=== PATIENT | female | born 1995 | race Caucasian/White ===

== ENCOUNTER 2017-10-23 19:13 | Emergency (ER) | payer OTHER ==
[~2017-10-23] VITALS: Ht 157.5 cm; Wt 59.0 kg
[~2017-10-23 19:13] MED LIST: ACYC200 PO; ALBU90OI INH; ALBU90OI6 INH; AMOX500 PO; AZIT250 PO; Advair Hfa 230-12 GM INH; Advair Hfa 45-212 GM INH; Amoxicillin500 MG PO; BUSP5 PO; CEPH250SUA PO; CEPH500 PO; CODACEE120 PO; CODBUTACEC PO; CYCL10 PO; Diflucan100 MG PO; FLUSAL2505 INH; Flagyl500 MG PO; GABA300 PO; HYDACE5 PO; IBUP800 PO; LIDO5TO TOP; MARIJUANA; METF500; METR500 PO; MULVITMINE PO; Macrobid 100 M100 MG PO; Mucinex600 MG PO; NAPR550 PO; Norco 5-325 Ta1 EACH PO; ONDA4ODT MM; PENI125S5 PO; PENVK500 PO; PRENATAL PO; Percocet 5-3251 EACH PO; Prednisone20 MG PO; Prednisone50 MG PO; SULTRIDS PO; TOPIRAGEN50 MG PO; Ventolin/Prove6.7 GM INH; Verotin-Gr Cap1 EACH PO; Vibramycin100 MG PO; Zithromax250 MG PO; Zofran Odt4 MG SL; Zovirax400 MG PO; Zovirax800 MG PO
[2017-10-23] MEDS ORDERED: Advair Hfa 230-12 GM INH (21:18)
[2017-10-23] MEDS ORDERED: ALBU2.5V5 NEB (22:25)
[2017-10-23] MEDS ORDERED: Zithromax250 MG PO (22:25)
[2018-02-16] MEDS ORDERED: METH5 (16:33)
[2018-02-16] MEDS ORDERED: METH10 (16:34)
[2018-07-20] MEDS ORDERED: DULERA 100 MCG/13 GM INH (15:55)
[2018-07-20] MEDS ORDERED: Pyridium200 MG PO (16:25)
[2018-07-20] MEDS ORDERED: CEPH500 PO (16:26)
[2018-08-07] MEDS ORDERED: PENVK500 PO (23:46)
[2018-08-07] MEDS ORDERED: IBUP600 PO (23:46)
== END 2017-10-23 22:40 | disposition home or self-care (01) ==
LOC: ER 19:13
DX: J44.1 Chronic obstructive pulmonary disease with (acute) exacerbation (principal); J96.90 Respiratory failure, unspecified, unspecified whether with hypoxia or hypercapnia; Z88.8 Allergy status to other drugs, medicaments and biological substances; Z79.899 Other long term (current) drug therapy; Z91.018 Allergy to other foods; F17.210 Nicotine dependence, cigarettes, uncomplicated; G43.909 Migraine, unspecified, not intractable, without status migrainosus
CPT/HCPCS: 71046; 94644; 99283; J1100

== ENCOUNTER 2017-10-30 11:08 | Emergency (ER) | payer OTHER ==
[~2017-10-30] VITALS: Ht 160 cm; Wt 61.2 kg
[~2017-10-30 11:08] MED LIST changes: +ALBU2.5V5 NEB
[2017-10-30] MEDS ORDERED: BUDE6HFA INH (11:49)
[2017-10-30] MEDS ORDERED: Prednisone20 MG PO (11:50)
[2017-10-30] MEDS ORDERED: ALBU90OI INH (11:50)
[2018-02-16] MEDS ORDERED: METH5 (16:33)
[2018-02-16] MEDS ORDERED: METH10 (16:34)
[2018-07-20] MEDS ORDERED: DULERA 100 MCG/13 GM INH (15:55)
[2018-07-20] MEDS ORDERED: Pyridium200 MG PO (16:25)
[2018-07-20] MEDS ORDERED: CEPH500 PO (16:26)
[2018-08-07] MEDS ORDERED: IBUP600 PO (23:46)
[2018-08-07] MEDS ORDERED: PENVK500 PO (23:46)
== END 2017-10-30 12:36 | disposition home or self-care (01) ==
LOC: ER 11:08
DX: J45.901 Unspecified asthma with (acute) exacerbation (principal); Z91.19 Patient's noncompliance with other medical treatment and regimen; F11.90 Opioid use, unspecified, uncomplicated; Z88.8 Allergy status to other drugs, medicaments and biological substances; Z91.018 Allergy to other foods; Z79.899 Other long term (current) drug therapy; G43.909 Migraine, unspecified, not intractable, without status migrainosus; J44.9 Chronic obstructive pulmonary disease, unspecified; F17.210 Nicotine dependence, cigarettes, uncomplicated
CPT/HCPCS: 94644; 99283

== ENCOUNTER 2017-12-16 10:48 | Emergency (ER) | payer OTHER ==
[~2017-12-16] VITALS: Ht 160 cm; Wt 59.0 kg
[~2017-12-16 10:48] MED LIST changes: +BUDE6HFA INH
[2017-12-16] MEDS ORDERED: Prednisone20 MG PO (12:16)
[2017-12-16] MEDS ORDERED: ALBU90OI INH (12:16)
[2017-12-16] MEDS ORDERED: BUDE6HFA INH (12:16)
== END 2017-12-16 13:05 | disposition home or self-care (01) ==
LOC: ER 10:48
DX: J44.9 Chronic obstructive pulmonary disease, unspecified (principal); J45.901 Unspecified asthma with (acute) exacerbation; R09.02 Hypoxemia; Z91.018 Allergy to other foods; Z88.8 Allergy status to other drugs, medicaments and biological substances; Z79.899 Other long term (current) drug therapy; G43.909 Migraine, unspecified, not intractable, without status migrainosus; F17.200 Nicotine dependence, unspecified, uncomplicated
CPT/HCPCS: 71046; 94640; 94644; 99283

== ENCOUNTER 2018-03-12 13:57 | Emergency (ER) | payer OTHER ==
[~2018-03-12] VITALS: Ht 157.5 cm; Wt 61.2 kg
[~2018-03-12 13:57] MED LIST changes: +METH10; +METH5
[2018-03-12] MEDS ORDERED: ALBU90OI INH (15:32)
[2018-03-12] MEDS ORDERED: Prednisone20 MG PO (15:32)
[2018-03-12] MEDS ORDERED: Vibramycin100 MG PO (15:32)
[2018-03-12] MEDS ORDERED: Augmentin 875-1 EACH PO (15:32)
== END 2018-03-12 16:06 | disposition left against medical advice (07) ==
LOC: ER 13:57
DX: J96.01 Acute respiratory failure with hypoxia (principal); J18.9 Pneumonia, unspecified organism; F17.210 Nicotine dependence, cigarettes, uncomplicated; J45.901 Unspecified asthma with (acute) exacerbation; G43.909 Migraine, unspecified, not intractable, without status migrainosus; J44.9 Chronic obstructive pulmonary disease, unspecified; Z91.018 Allergy to other foods; Z88.8 Allergy status to other drugs, medicaments and biological substances; Z79.899 Other long term (current) drug therapy
CPT/HCPCS: 71046; 94644; 99283-25; J0456; J1100; J7050

== ENCOUNTER 2018-03-13 10:04 | Observation (INO) | payer OTHER ==
[~2018-03-13] VITALS: Ht 157.5 cm; Wt 61.5 kg
[~2018-03-13 10:04] MED LIST changes: +Augmentin 875-1 EACH PO
[2018-03-13 12:21] LABS: BASOPHILS ABSOLUTE AUTO 0.01 K/mm3 (0.00-0.23); BASOPHILS PERCENT AUTO 0 % (0-2); EOSINOPHILS ABSOLUTE AUTO 0.01 K/mm3 (0.00-0.68); EOSINOPHILS PERCENT AUTO 0 % (0-6); Hematocrit 44.6 % (33.0-51.0); Hemoglobin 14.2 g/dL (11.5-16.0); IMMATURE GRAN ABSOLUTE AUTO 0.03 K/mm3 (0.00-0.10); IMMATURE GRAN PERCENT AUTO 0 % (0-1); LYMPHOCYTES ABSOLUTE AUTO 2.54 K/mm3 (0.84-5.20); LYMPHOCYTES PERCENT AUTO 21 % (21-46); MONOCYTES ABSOLUTE AUTO 0.46 K/mm3 (0.16-1.47); MONOCYTES PERCENT AUTO 4 % (4-13); Mean Corpuscular HGB 28.4 pg (26.0-34.0); Mean Corpuscular HGB Conc 31.8 g/dL (31.5-36.5); Mean Corpuscular Volume 89 fL (80-100); Mean Platelet Volume 10.3 fL (9.1-12.4); NEUTROPHILS ABSOLUTE AUTO 9.01 K/mm3 (1.96-9.15); NEUTROPHILS PERCENT AUTO 75 % (41-73); Platelet Count 247 K/mm3 (150-400); RDW Coefficient Variation 13.3 % (11.7-14.2); RDW Standard Deviation 43.3 fL (35.1-46.3); White Blood Cell Count 12.06 K/mm3 (4.00-11.30)
[2018-03-13 12:46] LABS: Alanine Aminotransfer (ALT/SGP 15 U/L (12-78); Albumin, Blood 3.6 g/dL (3.4-5.0); Albumin/Globulin Ratio 0.8 (0.8-1.8); Alk Phos 102 U/L (50-136); Anion Gap 9 mmol/L (6-16); Aspartate Aminotrans (AST/SGOT 19 U/L (12-37); Bilirubin, Total 0.7 mg/dL (0.1-1.0); Blood Urea Nitrogen 16 mg/dL (8-24); Bun/Creatinine Ratio 29.7 (12.0-20.0); CO2, Blood 20 mmol/L (21-32); Chloride, Blood 108 mmol/L (98-108); Creatinine, Blood 0.54 mg/dL (0.40-1.00); Globulin, Blood 4.8 g/dL (2.2-4.0); Glomerular Filtration Rate >60 (60-); Glucose, Blood 100 mg/dL (70-99); Potassium, Blood 4.4 mmol/L (3.5-5.5); Sodium, Blood 137 mmol/L (136-145); Total Protein, Blood 8.4 g/dL (6.4-8.2)
[2018-03-14 06:32] LABS: BASOPHILS ABSOLUTE AUTO 0.02 K/mm3 (0.00-0.23); BASOPHILS PERCENT AUTO 0 % (0-2); EOSINOPHILS ABSOLUTE AUTO 0.01 K/mm3 (0.00-0.68); EOSINOPHILS PERCENT AUTO 0 % (0-6); Hematocrit 36.8 % (33.0-51.0); Hemoglobin 11.7 g/dL (11.5-16.0); IMMATURE GRAN ABSOLUTE AUTO 0.03 K/mm3 (0.00-0.10); IMMATURE GRAN PERCENT AUTO 0 % (0-1); LYMPHOCYTES ABSOLUTE AUTO 3.16 K/mm3 (0.84-5.20); LYMPHOCYTES PERCENT AUTO 26 % (21-46); MONOCYTES ABSOLUTE AUTO 0.73 K/mm3 (0.16-1.47); MONOCYTES PERCENT AUTO 6 % (4-13); Mean Corpuscular HGB 29.1 pg (26.0-34.0); Mean Corpuscular HGB Conc 31.8 g/dL (31.5-36.5); Mean Platelet Volume 10.3 fL (9.1-12.4); NEUTROPHILS PERCENT AUTO 68 % (41-73); Platelet Count 194 K/mm3 (150-400); RDW Coefficient Variation 13.5 % (11.7-14.2); RDW Standard Deviation 45.5 fL (35.1-46.3); Red Blood Cell Count 4.02 M/mm3 (3.80-5.20); White Blood Cell Count 12.35 K/mm3 (4.00-11.30)
[2018-03-14 06:42] LABS: Mean Corpuscular Volume 92 fL (80-100)
[2018-03-14 07:16] LABS: Alanine Aminotransfer (ALT/SGP 7 U/L (12-78); Albumin, Blood 3.2 g/dL (3.4-5.0); Albumin/Globulin Ratio 0.8 (0.8-1.8); Alk Phos 81 U/L (50-136); Anion Gap 8 mmol/L (6-16); Aspartate Aminotrans (AST/SGOT 13 U/L (12-37); Bilirubin, Total 0.4 mg/dL (0.1-1.0); Blood Urea Nitrogen 11 mg/dL (8-24); Bun/Creatinine Ratio 20.6 (12.0-20.0); CO2, Blood 22 mmol/L (21-32); Calcium, Blood 8.3 mg/dL (8.5-10.1); Chloride, Blood 112 mmol/L (98-108); Creatinine, Blood 0.54 mg/dL (0.40-1.00); Globulin, Blood 3.9 g/dL (2.2-4.0); Glomerular Filtration Rate >60 (60-); Glucose, Blood 103 mg/dL (70-99); Magnesium, Blood 2.2 mg/dL (1.6-2.4); Potassium, Blood 4.2 mmol/L (3.5-5.5); Sodium, Blood 142 mmol/L (136-145); Total Protein, Blood 7.1 g/dL (6.4-8.2)
[2018-03-15] MEDS ORDERED: LEVFLO500 PO (15:42)
== END 2018-03-15 15:57 | disposition home or self-care (01) ==
LOC: ER 10:04 → MEDS 10:05 → ER 13:43 → MEDS 13:43 → ENPENDDIS 03-15 13:26 → MEDS 03-15 15:57
PROVIDERS: Emergency Medicine; Internal Medicine
DX: J18.9 Pneumonia, unspecified organism (principal); J44.1 Chronic obstructive pulmonary disease with (acute) exacerbation; F43.10 Post-traumatic stress disorder, unspecified; F19.10 Other psychoactive substance abuse, uncomplicated; F17.210 Nicotine dependence, cigarettes, uncomplicated; Z79.891 Long term (current) use of opiate analgesic; Z79.899 Other long term (current) drug therapy; Z79.2 Long term (current) use of antibiotics; Z88.5 Allergy status to narcotic agent
CPT/HCPCS: 36415; 80053; 83605; 83735; 85025; 94640; 94760; G0378; J0456; J0696; J1650; J1956; J2930; J7030; J7050

== ENCOUNTER 2018-11-11 17:11 | Emergency (ER) | payer OTHER ==
[~2018-11-11] VITALS: Ht 160 cm; Wt 74.8 kg
[~2018-11-11 17:11] MED LIST changes: +DULERA 100 MCG/13 GM INH; +IBUP600 PO; +LEVFLO500 PO; +Pyridium200 MG PO
[2018-11-11] MEDS ORDERED: ALBU90OI61 INH (17:40)
[2018-11-11] MEDS ORDERED: CLON.1 PO (17:40)
[2018-11-11] MEDS ORDERED: Prednisone20 MG PO (18:03)
== END 2018-11-11 18:09 | disposition home or self-care (01) ==
LOC: ER 17:11
DX: J45.901 Unspecified asthma with (acute) exacerbation (principal); Z88.8 Allergy status to other drugs, medicaments and biological substances; Z91.018 Allergy to other foods; Z79.899 Other long term (current) drug therapy; G43.909 Migraine, unspecified, not intractable, without status migrainosus; F17.200 Nicotine dependence, unspecified, uncomplicated
CPT/HCPCS: 99284

== ENCOUNTER 2018-12-17 19:29 | Emergency (ER) | payer OTHER ==
[~2018-12-17] VITALS: Ht 160 cm; Wt 72.6 kg
[~2018-12-17 19:29] MED LIST changes: +ALBU90OI61 INH; +CLON.1 PO
[2018-12-17] MEDS ORDERED: NEOPOLHCSU RIGHTEAR (20:45)
[2018-12-17] MEDS ORDERED: Amoxicillin875 MG PO (20:45)
== END 2018-12-17 20:55 | disposition home or self-care (01) ==
LOC: ER 19:29
DX: K08.89 Other specified disorders of teeth and supporting structures (principal); H92.21 Otorrhagia, right ear; Z88.8 Allergy status to other drugs, medicaments and biological substances; Z91.018 Allergy to other foods; Z79.899 Other long term (current) drug therapy; Z79.52 Long term (current) use of systemic steroids; G43.909 Migraine, unspecified, not intractable, without status migrainosus; J44.9 Chronic obstructive pulmonary disease, unspecified; F17.200 Nicotine dependence, unspecified, uncomplicated
CPT/HCPCS: 99282

== ENCOUNTER 2019-05-29 17:03 | Emergency (ER) | payer OTHER ==
[~2019-05-29] VITALS: Ht 160 cm; Wt 83.9 kg
[~2019-05-29 17:03] MED LIST changes: +Amoxicillin875 MG PO; +NEOPOLHCSU RIGHTEAR
[2019-05-29] MEDS ORDERED: Esgic Tablet1 EACH PO (18:30)
[2019-05-29] MEDS ORDERED: Cyclobenzaprine5 MG PO (18:30)
== END 2019-05-29 18:37 | disposition home or self-care (01) ==
LOC: ER 17:03
DX: S06.0X0A Concussion without loss of consciousness, initial encounter (principal); M62.838 Other muscle spasm; F17.200 Nicotine dependence, unspecified, uncomplicated; Z88.8 Allergy status to other drugs, medicaments and biological substances; Z88.5 Allergy status to narcotic agent; Z91.018 Allergy to other foods; Z91.048 Other nonmedicinal substance allergy status; Z79.891 Long term (current) use of opiate analgesic; V49.50XA Passenger injured in collision with unspecified motor vehicles in traffic accident, initial encounter
CPT/HCPCS: 99283

== ENCOUNTER 2019-08-27 23:30 | Emergency (ER) | payer OTHER ==
[~2019-08-27] VITALS: Ht 157.5 cm; Wt 88.5 kg
[~2019-08-27 23:30] MED LIST changes: +Cyclobenzaprine5 MG PO; +Esgic Tablet1 EACH PO
[2019-08-27] MEDS ORDERED: ALBU90OI INH (23:49)
[2019-08-27] MEDS ORDERED: DULERA 100 MCG/13 G1 INH (23:50)
[2019-08-28] MEDS ORDERED: Zithromax250 MG PO (00:59)
[2019-08-28] MEDS ORDERED: Prednisone50 MG PO (00:59)
== END 2019-08-28 01:12 | disposition home or self-care (01) ==
LOC: ER 23:30
DX: J44.1 Chronic obstructive pulmonary disease with (acute) exacerbation (principal); G43.909 Migraine, unspecified, not intractable, without status migrainosus; F17.200 Nicotine dependence, unspecified, uncomplicated; Z79.899 Other long term (current) drug therapy
CPT/HCPCS: 71046; 94640; 99283-25; J7512

== ENCOUNTER 2019-09-06 21:13 | Emergency (ER) | payer OTHER ==
[~2019-09-06] VITALS: Ht 160 cm; Wt 81.7 kg
[~2019-09-06 21:13] MED LIST changes: +DULERA 100 MCG/13 G1 INH
[2019-09-06 21:40] LABS: Source, Urine Clean Catch
[2019-09-06 21:42] LABS: Appearance, Urine Clear (Clear); Bilirubin, Urine Neg (Neg); Blood, Urine Neg (Neg); Color, Urine Amber (P-Yellow); Glucose Qualitative, Urine Neg (Neg); Ketones, Urine 1+ (Neg); Leukocyte Esterase, Urine 1+ (Neg); Nitrite, Urine Neg (Neg); Protein, Urine 1+ (Neg); Urobilinogen, Urine NORM (Normal); pH, Urine 6.5 (5.0-8.0)
[2019-09-06 21:48] LABS: Red Blood Cells, Urine 0-2 /hpf (0-2)
[2019-09-06 21:49] LABS: Bacteria Many /hpf; Mucus Mod (0-Heavy); Squamous Epithelial Cells Mod /hpf (Few)
== END 2019-09-06 22:37 | disposition left against medical advice (07) ==
LOC: ER 21:13
PROVIDERS: Physician Assistant
DX: R10.30 Lower abdominal pain, unspecified (principal); J44.9 Chronic obstructive pulmonary disease, unspecified; G43.909 Migraine, unspecified, not intractable, without status migrainosus; F43.10 Post-traumatic stress disorder, unspecified; F17.200 Nicotine dependence, unspecified, uncomplicated; Z91.018 Allergy to other foods; Z88.8 Allergy status to other drugs, medicaments and biological substances; Z79.52 Long term (current) use of systemic steroids; Z79.899 Other long term (current) drug therapy; Z87.01 Personal history of pneumonia (recurrent); Z86.19 Personal history of other infectious and parasitic diseases
CPT/HCPCS: 81001; 87086; 99283

== ENCOUNTER → 2019-09-11 | Outpatient (CLI) | payer OTHER | END | disposition home or self-care (01) | LOC: LAB 17:55 → LAB SHORT 17:55 | PROVIDERS: Nurse Practitioner Family | DX: Z01.419 Encounter for gynecological examination (general) (routine) without abnormal findings (principal) | CPT/HCPCS: G0123 ==